=== PATIENT | male | born 1940 | race American Indian/Alaskan Native ===

== ENCOUNTER 2018-11-21 10:27 | Outpatient (CLI) | payer MEDICARE ==
--- NOTE | 2018-11-21 12:53 | XRay Report ---
X-RAY METASTATIC BONE SURVEY:11/21/18 CLINICAL: Multiple myeloma FINDINGS: Lateral skull: Negative Cervical spine: Negative except for degenerative change. Thoracic spine: Negative except for scoliosis and degenerative change. Lumbar spine: Negative except for scoliosis and degenerative change. Chest and ribs: Negative Bilateral humerus: Negative Pelvis and hips: Negative Bilateral femur: Negative. However, a suspicious 5-10 mm round predominantly lucent lesion of the midline proximal right tibia. IMPRESSION: A suspicious 5-10 mm round predominantly lucent lesion of the midline proximal right tibia. The metastatic survey is otherwise negative. Recommend x-rays of the right knee and nuclear medicine bone scan.
== END 2018-11-21 10:28 | disposition home or self-care (01) ==
LOC: SPVIMAG 10:27
PROVIDERS: ATTEND Internal Medicine Hematology
DX: C90.00 Multiple myeloma not having achieved remission (principal)
CPT/HCPCS: 77074